=== PATIENT | male | born 1960 | race Caucasian/White ===

== ENCOUNTER 2021-08-09 15:07 | Outpatient (CLI) | payer OTHER ==
[2021-08-09 16:16] VITALS: BP 104/60
--- NOTE | 2021-08-09 16:16 | SLEEP CARE CONSULTATION ---
Information from patient questionnaire entered by Carly Denise MA. I have reviewed and concur with the information entered by Carly Denise MA. This document represents the service I personally performed and the decisions made by , Cynthia Rosenthal ARNP. History of Present Illness Service Date and Time: 08/09/2021 1507 Reason for Visit: New patient, Previously diagnosed sleep apnea (2006 AHI was 12.3 ), sleep apnea on CPAP therapy Chief Complaint: reports: Unrefreshed sleep, Frequent awakenings at night Date of Onset: 3 months Usual bedtime: 2130 Time it takes to fall asleep: 15-20 minutes Snores at night: Yes Observed to quit breathing while asleep: Yes Sleeps alone due to snoring: No Number of times waking at night: 4-6 Reasons for waking at night: reports: Other (unknown reason, sometimes sinus conjestion) Toss, Turn, or Twitch while sleeping: No Recalls having dreams: Yes Usually gets out of bed at: 0700 - 0730 Feels refreshed in the morning: No Morning headache: Yes (sometimes) Sleepy or fatigued during the day: No Ever fallen asleep while driving: No Takes day naps: Yes Prior sleep studies: Yes Year and Where: [facility] date unknown Additional HPI information: JEREMY JOHN was previously diagnosed to have mild, AHI 12.3, obstructive sleep apnea-hypopnea syndrome and comes in today to establish care for CPAP therapy. - Parasomnia Symptoms Ever been unable to move upon waking from sleep: No Walks in sleep: No Talks in sleep: No Ever acted out dreams in sleep: Yes Ever felt weak in the knees when startled or emotional: No Bothered by creepy, crawly, restless sensations in legs: No Problems with memory or concentration: No CPAP Compliance Data - Data Reviewed with Patient Average duration of nightly device use: 7 hours 29 minutes Compliance rate %: 95 Current pressure setting (cmH2O): 7 Average residual AHI: 0.1 Compliance data discussion: He has been buying his supplies online for last 2 years. He is using a nasal pillows mask. Subjective Patient concerns: reports: nasal congestion. denies: aerophagia, mask discomfort, air blowing in eyes, mask leak noise, condensation in mask/hose, dry mouth, nose, throat, epistaxis, other Observed to snore while using device: No Current pressure setting perceived as: comfortable (but would like to try an increase in pressure) On therapy, patient: reports: sleeping better, awakening more refreshed, being more awake and alert during the day, more rested overall. denies: drowsiness while driving Initial [place] Sleepiness Scale score: 5 (2020) Past Medical History Past Medical History: reports: Other (ankylosing spondylitis/auto immune) Social History The patient's occupation is a RE. Patient is and lives in [place]. Have you smoked in the past 12 months: No Alcohol use: Yes Alcohol amount and frequency: 1-2, 3-4x/week Caffeine use: Yes Caffeine amount and frequency: 12 oz in am, 1 espresso after lunch most days Family History Family history of sleep disordered breathing: Yes Family Hx Sleep Apnea: Mother: Snoring Allergies and Home Medications Drug allergies reviewed: Yes (NKDA) Home medication list reviewed: Yes Allergy and home medication list: Remicaide, one infusion every few months Review of Systems Cardiovascular: reports: palpitations Ear/Nose/Throat: reports: nasal congestion Musculoskeletal: reports: joint pain, back pain Physical Exam Blood Pressure: 104/60 Cuff size: wrist Heart Rate: 65 O2 Saturation: 97 Height: 5 ft 10 in Weight: 170 lb Body Mass Index: 24.3 BMI Classification: Healthy weight Heart: regular rate and rhythm Lungs: clear bilaterally Impression and Plan 1. Obstructive Sleep Apnea-Hypopnea Syndrome, mild, with good treatment compliance and excellent apnea control. On CPAP therapy, the patient has better sleep quality and is more rested overall. Patient has been purchasing his supplies online for the last 2 years. He would like to get his insurance to pay for his supplies. I will have my appraisal coordinator inform of DME options. A DWO prescription will then be made. The patients CPAP is over 5 years old and of reasonable use. Thus, the CPAP will be updated. A DWO prescription will be made. Compliance guidelines for new device and follow up discussed. Patient also asking to have a slight change on his pressure. He has been having trouble with nasal congestion at night. He has been using a Nasacort type nasal spray and a Mikayla pot with some improvement. He would like to see if a little increase in pressure will help. He has had a few times where he has woke up feeling like he could not breathe through his nose. I will increase his pressure to 7.2 cm H2O. Patient will let me know if further adjustment is needed. Nasal congestion can also be reduced with increasing the CPAP humidity. The heated hose can be adjusted higher if condensation with higher humidity setting. Saline nasal spray used prior to CPAP to clear nasal secretions and wash off any nasal allergens to facilitate nasal breathing. In addition, a steamy shower before bed will often assist nasal drainage. Verbal instructions given on how to change humidity and heated hose settings with rationale exp laining why to change. Patient voiced understanding. Patient's apnea severity and rationale for treatment to reduce apnea, improve sleep quality and reduce cardiovascular and cerebrovascular events was reviewed. * Transfer DME * Update machine * Change CPAP pressure to 7.2 cmH2O * Notify me if snoring with mask or feeling that the pressure is too much or too little * Attempt to lose weight * Call this office if any problems using CPAP * Return for follow up one month after obtaining new device, or sooner if concerns arise Counseling Topics: Spare mask Visit Type: In Office Time Spent with Patient (minutes): 38 Provider Statement: I spent 100% of the Face to Face Visit with the patient with greater than 50% spent counseling the patient and coordination of care.
== END 2021-08-09 15:08 | disposition home or self-care (01) ==
LOC: SC 15:07
PROVIDERS: ATTEND Nurse Practitioner Family
DX: G47.33 Obstructive sleep apnea (adult) (pediatric) (principal)
CPT/HCPCS: 99203; 99212

== ENCOUNTER 2022-01-17 09:38 | Outpatient (CLI) | payer OTHER ==
[2022-01-17 10:26] VITALS: BP 131/86
--- NOTE | 2022-01-17 10:26 | SLEEP CARE CONSULTATION ---
Information from patient questionnaire entered by Carly Denise MA. I have reviewed and concur with the information entered by Carly Denise MA. This document represents the service I personally performed and the decisions made by , Cynthia Rosenthal ARNP. History of Present Illness Service Date and Time: 01/17/2022 0938 Previous diagnosis: Mild, Obstructive Sleep Apnea-Hypopnea Syndrome AHI: 12.3 (in 2006) Reason for follow up: first compliance (12/10 SET UP DATE, RESMED, ) Equipment obtained from: [facility] (got initial supplies) Mask style: Nasal pillows Backup mask available: Yes (other mask) Prior sleep studies: Yes Year and Where: [facility] date unknown HPI additional information: JEREMY JOHN was diagnosed to have mild, AHI 12.3, obstructive sleep apnea- hypopnea syndrome and returned today for CPAP therapy first compliance after updating device follow-up. Sleep Study - Results Prior sleep studies: Yes Year and Where: [facility] date unknown CPAP Compliance Data - Data Reviewed with Patient Average duration of nightly device use: 6 HOURS 27 MINUTES Compliance rate %: 97 Current pressure setting (cmH2O): 8 Average residual AHI: 0.2 Central apnea: .1 Obstructive apnea: .0 Average large leak: 9.0 Subjective Patient concerns: reports: other (can't get good fit with full face). denies: aerophagia, mask discomfort, air blowing in eyes, mask leak noise, condensation in mask/hose, nasal congestion, dry mouth, nose, throat, epistaxis Observed to snore while using device: No Current pressure setting perceived as: comfortable On therapy, patient: reports: sleeping better, awakening more refreshed, being more awake and alert during the day, more rested overall. denies: drowsiness while driving Initial [place] Sleepiness Scale score: 5 (2020) Current [place] Sleepiness Scale score: 4 Allergies and Home Medications Home medication list reviewed: Yes (no changes) Review of Systems Review of systems same as previous: Yes (no changes) Physical Exam Vital signs obtained and entered by: MALACHI Blood Pressure: 131/86 (left) Cuff size: wrist Heart Rate: 70 O2 Saturation: 99 Height: 5 ft 10 in Weight: 175 lb (w/clothes, shoes) Body Mass Index: 25.1 BMI Classification: Overweight Impression and Plan 1. Obstructive Sleep Apnea-Hypopnea Syndrome, mild, with good treatment compliance and excellent apnea control. On CPAP therapy, the patient has better sleep quality and is more rested overall. Patient likes his new CPAP. He has been having some difficulty with nasal congestion about 3 AM in the morning waking him up. He does have seasonal allergies but recently the nasal congestion has been waking him up. He tried the ResMed Airfit F30i mask but states the headgear will pull the mask down on his face and break the seal and waking him up. He did feel the mask was very comfortable but went back to his nasal pillows mask to reduce wake ups due to seal breaks. I suggested he try the Dreamwear full face mask because the headgear may fit better and not pull down on mask. Nasal congestion can be reduced with increasing the CPAP humidity. The heated hose can be adjusted higher if condensation with higher humidity setting. Saline nasal spray obtained OTC can be used prior to CPAP to clear nasal s ecretions and wash off any nasal allergens to facilitate nasal breathing. In addition, a steamy shower before bed will often assist nasal drainage. Verbal instructions given on how to change humidity and heated hose settings with rationale explaining why to change. He voiced understanding. Patient's apnea severity and rationale for treatment to reduce apnea, improve sleep quality and reduce cardiovascular and cerebrovascular events was reviewed. Patient states his weight is stable and he was encouraged to maintain a healthy weight. * Continue auto CPAP pressure at 8 cmH2O * Try Dreamwear full face mask when/as able * Notify me if snoring with mask or feeling that the pressure is too much or too little * Attempt to lose weight * Call this office if any problems using CPAP * Return for follow up in 1 year, or sooner if concerns arise Counseling Topics: Spare mask, Weight loss health impact Visit Type: In Office Time Spent with Patient (minutes): 25 Provider Statement: I spent 100% of the Face to Face Visit with the patient with greater than 50% spent counseling the patient and coordination of care.
== END 2022-01-17 09:39 | disposition home or self-care (01) ==
LOC: SC 09:38
PROVIDERS: ATTEND Nurse Practitioner Family
DX: G47.33 Obstructive sleep apnea (adult) (pediatric) (principal)
CPT/HCPCS: 99212; 99213

== ENCOUNTER 2023-05-23 10:00 | Outpatient (CLI) | payer OTHER ==
--- NOTE | 2023-05-23 10:35 | Sleep Patient Instructions ---
Sleep Center Visit Summary - Patient Visit Information Reason for Visit: ANNUAL FOLLOWUP FOR PAP THERAPY - Patient Instructions Additional Instructions: You will continue with CPAP therapy with pressure changed to 10 cmH2O. A supply prescription will be updated with your DME. You have been transferred to a new DME, they should reach out to you to set up supplies. Please follow up with the sleep care office in 1 year. - Clinic Information Contact: [facility] [address] [place] [id number] [email or web address] T: [phone]
--- NOTE | 2023-05-23 10:42 | SLEEP CARE CONSULTATION ---
Information from patient questionnaire entered by Marion Andre. I have reviewed and concur with the information entered by Marion Andre. This document represents the service I personally performed and the decisions made by me, Cynthia Rosenthal ARNP. History of Present Illness Service Date and Time: 05/23/2023 1000 Previous diagnosis: Mild, Obstructive Sleep Apnea-Hypopnea Syndrome AHI: 12.3 (in 2006) Reason for follow up: annual (LAST SEEN 01/2022) Equipment type: CPAP (RESMED 11, s/u 12/2021) Equipment obtained from: [facility] (got initial supplies) Mask style: Full face Mask brand: Resmed (AirFit F20) Backup mask available: Yes (old mask) Last cushion change: 4 months Prior sleep studies: Yes Year and Where: [facility] date unknown HPI additional information: JEREMY JOHN was diagnosed to have mild, AHI 12.3, obstructive sleep apnea- hypopnea syndrome and returned today for CPAP therapy annual follow-up. Sleep Study - Results Prior sleep studies: Yes Year and Where: [facility] date unknown CPAP Compliance Data - Data Reviewed with Patient Average duration of nightly device use: 7 HRS 47 MIN Compliance rate %: 93 (11/18/22-05/16/23; 180/180 days used) Current pressure setting (cmH2O): 9 Average residual AHI: 5.3 Central apnea: 0 Obstructive apnea: 3.9 Hypopnea: 1.3 Average large leak: 0.5 L/min Subjective Patient concerns: reports: mask discomfort, dry mouth, nose, throat. denies: aerophagia, air blowing in eyes, mask leak noise, condensation in mask/hose, nasal congestion, epistaxis (opening mouth due to nasal congestion) Observed to snore while using device: No Current pressure setting perceived as: comfortable On therapy, patient: reports: sleeping better, awakening more refreshed, being more awake and alert during the day, more rested overall. denies: drowsiness while driving Initial [place] Sleepiness Scale score: 5 (2020) Current [place] Sleepiness Scale score: 3 (05/23/23) Allergies and Home Medications Known drug allergies: No Drug allergies reviewed: Yes Home medication list reviewed: Yes (Inflectra) Review of Systems Review of systems same as previous: Yes (no changes) Physical Exam Vital signs obtained and entered by: MARION Bob MA Blood Pressure: 98/62 (LEFT ARM) Cuff size: regular Heart Rate: 63 O2 Saturation: 63 Height: 5 ft 10 in Weight: 166 lb 6.4 oz Body Mass Index: 23.8 BMI Classification: Normal Impression and Plan 1. Obstructive Sleep Apnea-Hypopnea Syndrome, mild, with good treatment compliance and good apnea control with minimal elevation fo residual AHI. On CPAP therapy, the patient has better sleep quality and is more rested overall. The patients pressure will be changed to autoCPAP 10 cmH20 for minimal elevation of residual AHI. Patient advised to contact me if pressure change is uncomfortable so that it can be adjusted. Goals for apnea control discussed. He changed from his nasal mask to a full face, ResMed AirFit F20 mask, because he gets congested in his nose and has a hard time using the nasal mask. He did try the AirFit F30i by Resmed but found it would slip down on his face. I fit him to a Mary Dreamwear full face mask, large cushion and medium headgear. It was a good fit. He is going to try this mask and may order them in the future. He has been getting some dry mouth, probably from oral venting. I advised that he try to use some nasal saline spray before bed to reduce nasal congestion and open nasal passages. He voiced understanding. Patient's apnea severity and rationale for treatment to reduce apnea, improve sleep quality and reduce cardiovascular and cerebrovascular events was reviewed. Patient would like to transfer to another DME company. I will have my tissue coordinator inform of DME options. A DWO prescription will then be made. Patient advised to contact this office if further supply problems. * Mask fitting for Mary Dreamwear, large cushion * Change auto CPAP pressure to 10 cmH2O * Transfer DME * Update supplies * Notify me if snoring with mask or feeling that the pressure is too much or too little * Maintain healthy weight * Call this office if any problems using CPAP * Return for follow up in 1 year, or sooner if concerns arise Counseling Topics: Spare mask, Weight control Visit Type: In Office Time Spent with Patient (minutes): 34 Provider Statement: I spent 100% of the Face to Face Visit with the patient with greater than 50% spent counseling the patient and coordination of care.
[2023-05-23 10:50] VITALS: BP 98/62; O2SAT 63
== END 2023-05-23 10:01 | disposition home or self-care (01) ==
LOC: SC 10:00
PROVIDERS: ATTEND Nurse Practitioner Family
DX: G47.33 Obstructive sleep apnea (adult) (pediatric) (principal)
CPT/HCPCS: 99212; 99213